=== PATIENT | male | born 1950 | race Caucasian/White ===

== ENCOUNTER 2017-10-04 07:19 | Day surgery (SDC) | payer OTHER ==
[~2017-10-04 07:19] MED LIST: CHONDR SU A NA/HYALUR INTRAOC KIT (SURGICARE) ONE; EPINEPHRINE INJ/PF 1 MG/1 ML AMPULE ONE; KETOROLAC TROMETHAMINE 0.45% 4 DROP/0.4 ML DROPERETTE OS PRN; LIDOCAINE 1% INJ-PF (10 MG/ML) 30 ML SDV ONE
[2017-10-04] MEDS: CYCLOPENTOLATE 0.2%/PHENYLEPHRINE 1% OPH SOLN 2 ML OS PRN ×3 (07:47→08:12)
[2017-10-04] MEDS: TETRACAINE HCL 0.5% OPH SOLN 2 ML OS PRN ×2 (07:47→08:29)
[2017-10-04] MEDS: TROPICAMIDE 1% OPH SOLN 3 ML OS PRN ×3 (07:48→08:12)
[2017-10-04] MEDS: BESIFLOXACIN HCL 0.6% OPH SUSP 5 ML BOTTLE OS PRN ×3 (07:49→09:00)
[2017-10-04] MEDS ORDERED: MIDAZOLAM 2 MG/2 ML INJ ONE (08:21)
--- NOTE | 2017-10-04 19:48 | [facility] OPERATIVE REPORT E ---
[facility] Operative Report NAME: MING CASSIDY AGE: 67Y DATE OF SURGERY: 10/04/2017 ROOM: PREOPERATIVE DIAGNOSIS: CATARACT LEFT EYE. POSTOPERATIVE DIAGNOSIS: CATARACT LEFT EYE. OPERATION: Cataract extraction with intraocular lens implant of the left eye with a toric multifocal lens. SURGEON: VIDAL GUSTAFSON M.D. ANESTHESIA: MAC with retrobulbar. COMPLICATIONS: None. ESTIMATED BLOOD LOSS: None. PROCEDURE: After appropriate consent was obtained and calculations made, the patient was brought back to the operating room where the patient was prepped and draped in sterile fashion. A lid speculum was placed and attention was directed to a paracentesis where a paracentesis blade made a small incision. Viscoelastic was then used to inflate the anterior chamber. Next a 2.4 mm incision was made with the paracentesis blade. A continuous capsulorhexis forceps of approximately 5 mm was done using a cystitome and capsulorhexis forceps. Hydrodissection was carried out to make the lens freely mobile and then a divide and conquer technique was used to remove the lens with a CDE of approximately 6.95. Following this, the remaining cortical material was removed with irrigation/aspiration. After this the patient was then again marked. The marking procedure started in the preoperative holding area where 180 and 0 was marked with a marker. Now that the patient was in the operating room a 360-degree marker was used to misha the axis at approximately 110 degrees and a toric lens of 23.0 diopters [id number] was injected into the bag after filling with viscoelastic and rotating into proper position. The I/A was used to remove the viscoelastic material and the toric lens appeared to be appropriately aligned. A 10-0 nylon suture was used to close the corneal incision and TobraDex was instilled into the eye and a pressure patch was placed with a protective shield. The patient returned to postoperative recovery in stable condition. DICTATING PHYSICIAN: VIDAL GUSTAFSON M.D. [id number] PHY#: [id number] ID: [id number] JOB#: [id number] ACCT: [id number] cc:VIDAL GUSTAFSON M.D. >
--- NOTE | 2017-10-04 19:54 | [facility] DISCHARGE SUMMARY E ---
[facility] Discharge Summary NAME: MING CASSIDY AGE: 67Y ADMITTED: 10/04/2017 DISCHARGED: 10/04/2017 HISTORY AND HOSPITAL COURSE: This is a 67-year-old male with a history of RK surgery of the left eye, who underwent cataract extraction with toric IOL of the left eye. He underwent surgery because of difficulty at night with driving and had significant glare from headlights. DIAGNOSIS: Cataract of the left eye. DISCHARGE INSTRUCTIONS: He should be on a regular diet. No bending at the waist, no heavy lifting. He should use Besivance, Ilevro and Durezol at 3:00 p.m. and 8:00 p.m. Sleep with a rigid shield. I will see him for a 1-day postoperative tomorrow. DICTATING PHYSICIAN: VIDAL GUSTAFSON M.D. [id number] PHY#: [id number] ID: [id number] JOB#: [id number] ACCT: [id number] cc:VIDAL GUSTAFSON M.D. >
== END 2017-10-04 09:40 | disposition home or self-care (01) ==
LOC: SC 07:19
PROVIDERS: ATTEND Internal Medicine
PROC: 08RK3JZ Replacement of Left Lens with Synthetic Substitute, Percutaneous Approach (ICD-10-PCS; principal; 2017-10-04 08:30)
DX: H25.12 Age-related nuclear cataract, left eye (principal); I10 Essential (primary) hypertension; E11.9 Type 2 diabetes mellitus without complications; G47.30 Sleep apnea, unspecified; F17.210 Nicotine dependence, cigarettes, uncomplicated; E66.9 Obesity, unspecified; Z68.34 Body mass index [BMI] 34.0-34.9, adult; Z79.899 Other long term (current) drug therapy; Z79.84 Long term (current) use of oral hypoglycemic drugs; Z88.5 Allergy status to narcotic agent; Z79.82 Long term (current) use of aspirin
CPT/HCPCS: 66984; 82962; V2787; J2250; J3490 ×2; J0171; 142